=== PATIENT | female | born 1990 | race African-American/Black ===

== ENCOUNTER 2023-09-26 00:57 | Emergency (ER) | payer OTHER ==
[2023-09-26 01:19] VITALS: BP 112/78; PULSE 71; RESP 16; TEMP 98.6; BMI 27.1
[2023-09-26] MEDS ORDERED: FAMOTIDINE 20 MG/50 ML IVPB 20 MG/50 ML MG IVPB ONE (02:36)
[2023-09-26] MEDS: FAMOTIDINE 20 MG/50 ML IVPB 20 MG/50 ML MG IVPB ONE (03:14)
[2023-09-26] MEDS: LACTATED RINGERS SOLUTION 1000 ML INFUS.BAG IV ONE (03:14)
[2023-09-26 03:18] LABS: BASO % 1.4 % (0-2.0); EOS % 2.2 % (0-4.5); LYMPH % 26.9 % (8-40); MCH 27.5 pg (25.7-33.7); MCHC 34.3 g/dl (32.0-36.0); MEAN CELL VOLUME 80.1 fl (80-96); MEAN PLT VOLUME 7.5 fl (7.5-11.1); NEUT % 62.5 % (42.8-82.8); PLATELET COUNT 409 10^3/uL (134-434); RBC 3.99 M/mm3 (3.60-5.2); RDW 15.2 % (11.6-15.6); WHITE BLOOD COUNT 7.6 K/mm3 (4.0-10.0)
[2023-09-26 03:40] LABS: POTASSIUM 4.1 mmol/L (3.5-5.1)
[2023-09-26 03:42] LABS: CALCIUM 9.4 mg/dL (8.5-10.1)
[2023-09-26 03:43] LABS: ALBUMIN 3.6 g/dl (3.4-5.0); BLOOD UREA NITROGEN 6.5 mg/dL (7-18); MAGNESIUM 2.1 mg/dL (1.8-2.4)
[2023-09-26 03:46] LABS: CREATININE 0.7 mg/dL (0.55-1.3)
[2023-09-26 03:48] LABS: BILIRUBIN,TOTAL 0.5 mg/dL (0.2-1); TOT PROT 7.1 g/dl (6.4-8.2)
== END 2023-09-26 04:30 | disposition home or self-care (01) ==
LOC: JER 00:57
PROC: 3E033GC Introduction of Other Therapeutic Substance into Peripheral Vein, Percutaneous Approach (ICD-10-PCS; principal; 2023-09-26)
DX: O09.511 Supervision of elderly primigravida, first trimester (principal); O21.9 Vomiting of pregnancy, unspecified; Z3A.10 10 weeks gestation of pregnancy
CPT/HCPCS: 36415; 80053; 83735; 85025; 99284-25

== ENCOUNTER 2024-09-26 01:10 | Emergency (ER) | payer OTHER ==
[2024-09-26 01:17] VITALS: BP 120/84; PULSE 82; RESP 18; TEMP 98.1; BMI 27.4
[2024-09-26] MEDS ORDERED: IBUPROFEN 400 MG TABLET (FP) PO ONE (01:39)
[2024-09-26] MEDS: IBUPROFEN 400 MG TABLET (FP) PO ONE (01:39)
== END 2024-09-26 01:58 | disposition home or self-care (01) ==
LOC: JER 01:10
DX: R21 Rash and other nonspecific skin eruption (principal); R22.42 Localized swelling, mass and lump, left lower limb
CPT/HCPCS: 99283-25